=== PATIENT | female | born 1960 | race Caucasian/White ===

== ENCOUNTER 2016-12-21 09:32 | Emergency (ER) | payer OTHER ==
[~2016-12-21] VITALS: Ht 185.4 cm; Wt 127.2 kg
[~2016-12-21 09:32] MED LIST: ACIDOPHILUS1 EAC4 PO; ALTABAX15 GM TP; AMBIEN CR12.5 MG PO; AMBIEN10 MG PO; AMLODIPINE BESYL5 MG PO; ANUCORT-HC25 MG PR; ARMOUR THYROID90 MG PO; ATARAX,VISTARIL25 MG PO; ATIVAN1 MG PO; Ativan PO; B COMPLETE1 EACH PO; BACTROBAN CREAM15 GM PO; BENICAR HCT 401 EAC1 PO; BENICAR40 MG PO; BENTYL10 MG PO; BENTYL20 MG PO; BREO ELLIPTA 21 EACH IH; BUSPIRONE HCL15 MG PO; BUTALB-APAP-CA1 EACH PO; CEFTIN500 MG PO; CHOLESTYRAMINE P4 GM PO; CLEARLAX17 GM PO; CLONIDINE HCL0.1 MG PO; CYMBALTA60 MG PO; DAILY VITE1 EAC1 PO; DESONATE TP; DICLOFENAC SODI75 MG PO; DICYCLOMINE HCL20 MG PO; DILAUDID2 MG PO; DULCOLAX1 EACH PO; DULCOLAX5 MG PO; EXALGO16 MG PO; FIBER500 MG PO; FIORICET 50-321 EAC1 PO; FLEXERIL10 MG PO; FLONASE16 G1 BOTH NARES; FLORASTOR250 MG PO; Flonase BOTH NARES; HIP INJECTION; HYCODAN SYRUP480 ML PO; HYDROCODON-ACE1 EAC4 PO; LASIX20 MG PO; LEVOFLOXACIN750 MG PO; LEVOTHROID,SYN0.1 MG PO; LEVOTHYROXINE100 MCG PO; LEVOTHYROXINE112 MCG PO; LEVOTHYROXINE150 MCG PO; LISINOPRIL-HCT1 EAC3 PO; LISINOPRIL-HCT1 EACH PO; LISINOPRIL20 MG PO; LOPERAMIDE2 MG PO; LORAZEPAM1 MG PO; LUNESTA3 MG PO; Levothroid,Synthroid PO; MAGNEBIND 3001 EACH PO; MAGNESIUM/CALCIUM PO; MECLOFENAMATE100 MG PO; METAMUCIL1 EACH PO; METRONIDAZOLE500 MG PO; MIRAPEX0.25 MG PO; MORPHINE SULFAT60 M1 PO; MORPHINE SULFAT60 MG PO; MUCINEX D ER T1 EACH PO; NORITATE TP; NUCYNTA75 MG PO; OMEPRAZOLE40 M1 PO; OMEPRAZOLE40 MG PO; ONE DAILY FOR1 EAC3 PO; OPANA ER10 MG PO; OPANA ER15 MG PO; OPANA ER30 MG PO; OPANA IR10 MG PO; Opana ER PO; PERCOCET 10-321 EACH PO; PHENERGAN12.5 M1 PO; PRILOSEC40 MG PO; PRINZIDE 20-121 EACH PO; PROAIR HFA8.5 GM IH; PROMETHAZINE HC25 M1 PO; PROMETHAZINE12.5 M1 PO; Phenergan PO; Potassium PO; REQUIP1 MG PO; ROPINIROLE HCL1 MG PO; ROXICODONE5 MG PO; Requip PO; SEROQUEL XR150 MG PO; SERTRALINE HCL100 MG PO; SINGULAIR10 MG PO; SOLARAZE 3% GEL50 GM PO; TIZANIDINE HCL4 M1 PO; TIZANIDINE HCL4 MG PO; TOPROL XL50 MG PO; TRAZODONE HCL50 MG PO; TYLENOL EXTRA500 MG PO; Theragran-M,Centrum, PO; Tylenol Regular Stre PO; VICODIN HP 11 TABLET PO; VITAMIN B-12500 MC5 SL; VITAMIN D35000 UNIT PO; VITAMIN D5000 UNI1 PO; VOLTAREN 1% GE100 GM TP; Vitamin D PO; WOMEN'S 50+ DA1 EACH PO; XIFAXAN550 MG PO; ZANAFLEX4 M1 PO; ZESTORETIC 20-1 EAC2 PO; ZESTORETIC,P1 TABLE1 PO; ZIPSOR25 MG PO; ZOFRAN4 MG PO; ZOLOFT100 MG PO; ZYVOX600 MG PO; Zestoretic,Prinzide PO; Zoloft PO; [UNRECOGNIZED DRUG - OTHER]; [UNRECOGNIZED DRUG - OTHER] PO; [UNRECOGNIZED DRUG - OTHER] TP
[2016-12-21 10:35] LABS: EOSINOPHIL (%) 3.4 % (0-5); EOSINOPHIL COUNT 0.2 K/uL (0-0.3); HEMATOCRIT 45.7 % (36.0-46.0); IMMATURE GRANULOCYTE (%) 0.4 % (0.0-0.7); INSTRUMENT ABS NEUTROPHIL CT 3.7 K/uL; LYMPHOCYTE COUNT 1.2 K/uL (1.0-2.8); MCH 29.5 PG (29.0-34.0); MCHC 32.2 G/DL (30.0-36.0); MCV 91.8 FL (83-99); MONOCYTE (%) 8.1 % (3-12); MONOCYTE COUNT 0.5 K/uL (0-0.8); NEUTROPHIL (%) 65.4 % (45-76); NEUTROPHIL COUNT 3.7 K/uL (1.8-6.4); PLATELET COUNT 259 K/uL (156-360); RBC DIS.WIDTH-CV 13.2 % (11.8-14.6); RBC DIS.WIDTH-SD 44.1 % (39-53); RED BLOOD COUNT 4.98 M/uL (3.80-5.20); WHITE BLOOD COUNT 5.6 K/uL (4.1-10.2)
[2016-12-21 10:48] LABS: CHLORIDE 105 mEq/L (99-109); POTASSIUM 4.5 mEq/L (3.7-5.4); SODIUM 138 mEq/L (136-147)
[2016-12-21 10:49] LABS: GLUCOSE 105 mg/dL (70-99)
[2016-12-21 10:51] LABS: ANION GAP 9 MEQ/L (2-14)
[2016-12-21 10:53] LABS: GFR ESTIMATE (CALCULATED) > 59 mL/min/
[2016-12-21 10:54] LABS: UREA NITROGEN (BUN) 18 mg/dL (9-23)
[2016-12-21] MEDS ORDERED: VENLAFAXINE HCL75 MG PO (12:10)
[2016-12-21] MEDS ORDERED: NAPROSYN500 MG PO (12:10)
[2016-12-21 12:32] VITALS: BP 164/96
== END 2016-12-21 12:33 | disposition home or self-care (01) ==
LOC: EME 09:32
PROVIDERS: Physician Assistant
DX: S06.0X0A Concussion without loss of consciousness, initial encounter (principal); S00.81XA Abrasion of other part of head, initial encounter; W01.198A Fall on same level from slipping, tripping and stumbling with subsequent striking against other object, initial encounter; M47.22 Other spondylosis with radiculopathy, cervical region; R73.9 Hyperglycemia, unspecified; I10 Essential (primary) hypertension; E03.9 Hypothyroidism, unspecified; Z86.14 Personal history of Methicillin resistant Staphylococcus aureus infection
CPT/HCPCS: 70450; 72125; 73000; 73030; 80048; 85025; 99281; 99285

== ENCOUNTER 2017-05-24 10:29 | Emergency (ER) | payer OTHER ==
[~2017-05-24] VITALS: Ht 185.4 cm; Wt 133.1 kg
[~2017-05-24 10:29] MED LIST changes: +NAPROSYN500 MG PO; +VENLAFAXINE HCL75 MG PO
[2017-05-24 12:23] LABS: EOSINOPHIL (%) 1.9 % (0-5); EOSINOPHIL COUNT 0.1 K/uL (0-0.3); HEMATOCRIT 46.9 % (36.0-46.0); IMMATURE GRANULOCYTE (%) 0.3 % (0.0-0.7); INSTRUMENT ABS NEUTROPHIL CT 4.2 K/uL; LYMPHOCYTE COUNT 1.1 K/uL (1.0-2.8); MCH 30.2 PG (29.0-34.0); MCV 91.4 FL (83-99); MEAN PLAT.VOLUME 10.6 uM^3 (9.5-12.4); MONOCYTE (%) 7.1 % (3-12); MONOCYTE COUNT 0.4 K/uL (0-0.8); NEUTROPHIL (%) 71.3 % (45-76); NEUTROPHIL COUNT 4.2 K/uL (1.8-6.4); PLATELET COUNT 236 K/uL (156-360); RBC DIS.WIDTH-SD 43.9 % (39-53); RED BLOOD COUNT 5.13 M/uL (3.80-5.20); WHITE BLOOD COUNT 5.9 K/uL (4.1-10.2)
[2017-05-24 12:32] LABS: CHLORIDE 107 mEq/L (99-109); POTASSIUM 4.7 mEq/L (3.7-5.4); SODIUM 140 mEq/L (136-147)
[2017-05-24 12:34] LABS: GLUCOSE 91 mg/dL (70-99)
[2017-05-24 12:36] LABS: ANION GAP 12 MEQ/L (2-14)
[2017-05-24 12:38] LABS: GFR ESTIMATE (CALCULATED) > 59 mL/min/
[2017-05-24 12:39] LABS: UREA NITROGEN (BUN) 15 mg/dL (9-23)
[2017-05-24 12:58] LABS: ADD MIUA? NO; BILIRUBIN NEGATIVE; BLOOD NEGATIVE; COLOR YELLOW ((YELLOW)); GLUCOSE (STRIP) NEGATIVE; KETONES 5; LEUKOCYTES NEGATIVE; NITRITE NEGATIVE; PROTEIN (STRIP) NEGATIVE; SPECIFIC GRAVITY 1.014 (1.000-1.030); UROBILINOGEN 0.2 MG/DL (0.2-1.0)
[2017-05-24] MEDS ORDERED: PERCOCET 5/31 TABLET PO (14:27)
[2017-05-24 14:48] VITALS: BP 146/86
== END 2017-05-24 14:48 | disposition home or self-care (01) ==
LOC: EME 10:29
PROVIDERS: Emergency Medicine
DX: M79.604 Pain in right leg (principal); M79.1 Myalgia; I10 Essential (primary) hypertension; M54.2 Cervicalgia; R10.33 Periumbilical pain; R11.0 Nausea; R51 Headache; E03.9 Hypothyroidism, unspecified; J45.909 Unspecified asthma, uncomplicated; Z90.49 Acquired absence of other specified parts of digestive tract; Z90.710 Acquired absence of both cervix and uterus; Z98.1 Arthrodesis status
CPT/HCPCS: 74176; 80048; 81003; 85025; 93005; 93971; 99281; 99285; J2270; J2405

== ENCOUNTER 2017-08-24 16:21 | Emergency (ER) | payer OTHER ==
[~2017-08-24] VITALS: Ht 185.4 cm; Wt 135.0 kg
[~2017-08-24 16:21] MED LIST changes: +PERCOCET 5/31 TABLET PO
[2017-08-24 18:56] LABS: BASOPHIL COUNT 0.1 K/uL (0-0.1); EOSINOPHIL (%) 2.4 % (0-5); EOSINOPHIL COUNT 0.2 K/uL (0-0.3); HEMATOCRIT 49.7 % (36.0-46.0); IMMATURE GRANULOCYTE (%) 0.4 % (0.0-0.7); INSTRUMENT ABS NEUTROPHIL CT 5.2 K/uL; LYMPHOCYTE COUNT 1.3 K/uL (1.0-2.8); MCH 30.1 PG (29.0-34.0); MCHC 32.4 G/DL (30.0-36.0); MCV 93.1 FL (83-99); MONOCYTE (%) 8.7 % (3-12); MONOCYTE COUNT 0.6 K/uL (0-0.8); NEUTROPHIL (%) 70.3 % (45-76); NEUTROPHIL COUNT 5.2 K/uL (1.8-6.4); PLATELET COUNT 296 K/uL (156-360); RBC DIS.WIDTH-CV 13.3 % (11.8-14.6); RBC DIS.WIDTH-SD 45.5 % (39-53); RED BLOOD COUNT 5.34 M/uL (3.80-5.20); WHITE BLOOD COUNT 7.4 K/uL (4.1-10.2)
[2017-08-24 19:09] LABS: CHLORIDE 107 mEq/L (99-109); POTASSIUM 3.8 mEq/L (3.7-5.4); SODIUM 142 mEq/L (136-147)
[2017-08-24 19:10] LABS: GLUCOSE 90 mg/dL (70-99)
[2017-08-24 19:12] LABS: ANION GAP 12 MEQ/L (2-14)
[2017-08-24 19:14] LABS: GFR ESTIMATE (CALCULATED) > 59 mL/min/
[2017-08-24 19:15] LABS: UREA NITROGEN (BUN) 14 mg/dL (9-23)
[2017-08-24 19:18] LABS: TROP-I INTERPRETATION NEGATIVE; TROPONIN-I < 0.01 ng/mL (0.0-0.30)
[2017-08-24] MEDS ORDERED: PERCOCET 5/31 TABLET PO (20:17)
[2017-08-24 20:51] VITALS: BP 170/90
== END 2017-08-24 20:58 | disposition home or self-care (01) ==
LOC: EME 16:21 → RME 16:21
PROVIDERS: Physician Assistant
DX: I10 Essential (primary) hypertension (principal); E03.9 Hypothyroidism, unspecified; K21.9 Gastro-esophageal reflux disease without esophagitis; J45.909 Unspecified asthma, uncomplicated; F32.9 Major depressive disorder, single episode, unspecified; F41.9 Anxiety disorder, unspecified; M79.7 Fibromyalgia; M19.90 Unspecified osteoarthritis, unspecified site; Z88.2 Allergy status to sulfonamides; Z86.73 Personal history of transient ischemic attack (TIA), and cerebral infarction without residual deficits; Z88.8 Allergy status to other drugs, medicaments and biological substances
CPT/HCPCS: 70450; 71020; 80048; 84484; 85025; 93005; 99281; 99285

== ENCOUNTER 2017-10-30 10:23 | Emergency (ER) | payer OTHER ==
[~2017-10-30] VITALS: Ht 185.4 cm; Wt 132.8 kg
[2017-10-30 10:49] LABS: HEMATOCRIT 46.4 % (36.0-46.0); MCH 30.6 PG (29.0-34.0); MCHC 34.5 G/DL (30.0-36.0); MCV 88.7 FL (83-99); PLATELET COUNT 271 K/uL (156-360); RBC DIS.WIDTH-CV 12.3 % (11.8-14.6); RBC DIS.WIDTH-SD 40.2 % (39-53); RED BLOOD COUNT 5.23 M/uL (3.80-5.20); WHITE BLOOD COUNT 10.6 K/uL (4.1-10.2)
[2017-10-30 10:59] LABS: CHLORIDE 100 mEq/L (99-109); POTASSIUM 3.7 mEq/L (3.7-5.4); SODIUM 134 mEq/L (136-147)
[2017-10-30 11:01] LABS: GLUCOSE 104 mg/dL (70-99)
[2017-10-30 11:05] LABS: GFR ESTIMATE (CALCULATED) > 59 mL/min/
[2017-10-30 11:06] LABS: UREA NITROGEN (BUN) 11 mg/dL (9-23)
[2017-10-30 11:23] LABS: APPEARANCE CLEAR ((CLEAR)); BILIRUBIN NEGATIVE; BLOOD NEGATIVE; COLOR YELLOW ((YELLOW)); GLUCOSE (STRIP) NEGATIVE; KETONES NEGATIVE; LEUKOCYTES NEGATIVE; NITRITE NEGATIVE; PROTEIN (STRIP) NEGATIVE; SPECIFIC GRAVITY 1.014 (1.000-1.030); UCUL ADDED? NO; UROBILINOGEN 0.2 MG/DL (0.2-1.0)
[2017-10-30 13:40] LABS: ALBUMIN 4.1 g/dL (3.2-4.8)
[2017-10-30 13:43] LABS: TOTAL PROTEIN 7.4 g/dL (6.4-8.3)
[2017-10-30 13:45] LABS: TOTAL BILIRUBIN 0.8 mg/dL (0.0-1.0)
[2017-10-30 13:46] LABS: ALKALINE PHOSPHATASE 50 IU/L (3-129)
[2017-10-30 13:48] LABS: AST (GOT) 22 IU/L (2-34); DIRECT BILIRUBIN 0.3 mg/dL (0.0-0.3)
[2017-10-30 13:49] LABS: ALT (GPT) 27 IU/L (3-49)
[2017-10-30] MEDS ORDERED: CHERATUSSIN AC473 ML PO (15:10)
[2017-10-30 15:58] VITALS: BP 135/68
== END 2017-10-30 15:59 | disposition home or self-care (01) ==
LOC: EME 10:23
PROVIDERS: Physician Assistant Medical
DX: B34.9 Viral infection, unspecified (principal); M19.90 Unspecified osteoarthritis, unspecified site; K21.9 Gastro-esophageal reflux disease without esophagitis; J45.909 Unspecified asthma, uncomplicated; I10 Essential (primary) hypertension; E03.9 Hypothyroidism, unspecified; M79.7 Fibromyalgia; F41.9 Anxiety disorder, unspecified; F32.9 Major depressive disorder, single episode, unspecified; Z98.1 Arthrodesis status; Z86.73 Personal history of transient ischemic attack (TIA), and cerebral infarction without residual deficits; Z86.14 Personal history of Methicillin resistant Staphylococcus aureus infection; Z90.49 Acquired absence of other specified parts of digestive tract; Z90.89 Acquired absence of other organs; Z88.5 Allergy status to narcotic agent; Z88.2 Allergy status to sulfonamides; Z88.8 Allergy status to other drugs, medicaments and biological substances
CPT/HCPCS: 71046; 80048; 80076; 81003; 85027; 87177; 87493; 87502; 87506; 94640; 99281; 99284; J2405; J7030